=== PATIENT | female | born 1985 | race Caucasian/White ===

== ENCOUNTER 2018-08-18 07:40 | Day surgery (SDC) | payer MEDICAID ==
[2018-08-18] MEDS: CEFAZOLIN 1 GM/50 ML (PMX) 0 ML IVPB (08:43)
[2018-08-18] MEDS: CEFAZOLIN 1 GM/50 ML (PMX) 50 ML IVPB (09:45)
[2018-08-18] MEDS: SOD CHLORIDE 0.9% 1,000 ML IV (10:00)
[2018-08-18] MEDS: LIDOCAINE 1%/EPI (1:100,000) (MDV) 20 ML (10:31)
[2018-08-18] MEDS: FENTAnyl 50 MCG/ML VIAL (10:31)
[2018-08-18] MEDS: HEPARIN 1000 UNITS/ML 10 ML INJ (10:50)
[2018-08-18] MEDS: MIDAZOLAM 1 MG/ML 2 ML INJ (10:50)
[2018-08-18] MEDS: POLYMYXIN/BACITRACIN 1L IRRIG IRR (10:55)
[2018-08-18] MEDS ORDERED: HYDROCODONE/APAP (5/325) TAB PO (11:30)
== END 2018-08-18 13:35 | disposition home or self-care (01) ==
LOC: SDS 07:40
DX: C50.911 Malignant neoplasm of unspecified site of right female breast (principal)
CPT/HCPCS: 36561; 76942

== ENCOUNTER 2019-03-03 07:17 | Observation (INO) | payer MEDICAID ==
[2019-03-03 08:28] LABS: ADD MAN DIFF? NO
[2019-03-03 08:30] LABS: BASOPHILS % 0.3 % (0.0-2.0); EOSINOPHILS # 0.2 10^3/ul (0.0-0.5); EOSINOPHILS % 2.2 % (0.0-7.0); HEMATOCRIT 41.1 % (37.0-47.0); HEMOGLOBIN 12.9 g/dl (12.0-16.0); LYMPHOCYTES # 3.1 10^3/ul (0.8-2.9); LYMPHOCYTES % 39.9 % (15.0-51.0); MEAN CORPUSCULAR HEMOGLOBIN 27.7 pg (29.0-33.0); MEAN CORPUSCULAR HGB CONC 31.4 g/dl (32.0-37.0); MEAN CORPUSCULAR VOLUME 88.2 fl (82.0-101.0); MEAN PLATELET VOLUME 9.2 fl (7.4-10.4); MONOCYTE # 0.5 10^3/ul (0.3-0.9); MONOCYTES % 6.3 % (0.0-11.0); NEUTROPHILS % 50.9 % (39.0-77.0); PLATELET COUNT 274 10^3/UL (140-415); RED BLOOD COUNT 4.66 10^6/ul (4.20-5.40); RED CELL DISTRIBUTION WIDTH 14.8 % (11.5-14.5)
[2019-03-03 08:30] LABS: WHITE BLOOD COUNT 7.8 10^3/ul (4.8-10.8)
[2019-03-03 08:35] LABS: ALANINE AMINOTRANSFERASE 35 IU/L (13-69); ALBUMIN 4.2 g/dl (3.3-4.9); ALBUMIN/GLOBULIN RATIO 1.13; ALKALINE PHOSPHATASE 116 IU/L (42-121); ANION GAP 7 (5-13); ASPARTATE AMINO TRANSFERASE 25 IU/L (15-46); BILIRUBIN,INDIRECT 0.3 mg/dl (0-1.1); BILIRUBIN,TOTAL 0.3 mg/dl (0.2-1.3); BLOOD UREA NITROGEN 18 mg/dl (7-20); CALCIUM 9.6 mg/dl (8.4-10.2); CARBON DIOXIDE 30 mmol/L (21-31); CHLORIDE 103 mmol/L (97-110); CREATININE 0.58 mg/dl (0.44-1.00); Estimated GFR > 60 mL/min (>60); GLUCOSE 110 mg/dl (70-220); POTASSIUM 4.4 mmol/L (3.5-5.1); SODIUM 140 mmol/L (135-144); TOTAL PROTEIN 7.9 g/dl (6.1-8.1)
[2019-03-03 08:57] LABS: INR 0.98; PROTIME 13.1 Sec (11.9-14.9)
[2019-03-03 08:58] LABS: PARTIAL THROMBOPLASTIN TIME 29.9 Sec (23.0-35.0)
[2019-03-03] MEDS: CEFAZOLIN 2 GM/50 ML (PMX) 50 ML IVPB (11:00)
[2019-03-03] MEDS: SOD CHLORIDE 0.9% 1,000 ML IV (11:44)
[2019-03-03] MEDS ORDERED: PROPOFOL 20 ML (13:49)
[2019-03-03] MEDS ORDERED: MIDAZOLAM 1 MG/ML 2 ML INJ (13:49)
[2019-03-03] MEDS ORDERED: LIDOCAINE 2% (SDV) 5 ML INJ (13:49)
[2019-03-03] MEDS ORDERED: FENTAnyl 50 MCG/ML VIAL (13:56)
[2019-03-03] MEDS ORDERED: FAMOTIDINE 20 MG INJ (14:13)
[2019-03-03] MEDS ORDERED: CEFAZOLIN 1 GM INJ (14:13)
[2019-03-03] MEDS ORDERED: ONDANSETRON 4 MG INJ (14:13)
[2019-03-03] MEDS ORDERED: DEXAMETHASONE 4 MG/ML 5 ML INJ (14:13)
[2019-03-03] MEDS ORDERED: HYDROmorphONE 2 MG/ML SYG (14:17)
[2019-03-03] MEDS: ISOSULFAN BLUE 1% 5 ML INJ SC (14:25)
[2019-03-03] MEDS: D5W-0.45 NACL + KCL 20 MEQ 1,000 ML IV (15:22)
[2019-03-03] MEDS ORDERED: morphine 2 MG INJ IV (15:30)
[2019-03-03] MEDS ORDERED: ACETAMINOPHEN 1000MG/100ML IV 100 ML IVPB (15:30)
[2019-03-03] MEDS ORDERED: ONDANSETRON 4 MG INJ IV ×2 (15:30→16:30)
[2019-03-03] MEDS ORDERED: PROCHLORPERAZINE 10 MG INJ IV (16:30)
[2019-03-03] MEDS ORDERED: DIPHENHYDRAMINE 50 MG INJ IV (16:30)
[2019-03-03] MEDS ORDERED: FENTAnyl 50 MCG/ML VIAL IV ×3 (16:30)
[2019-03-03] MEDS ORDERED: HYDROmorphONE 1 MG/5 ML IV SYRINGE IV ×3 (16:30)
[2019-03-03] MEDS ORDERED: OXYCODONE/ACETAMINOPHEN (5/325) TAB PO (16:30)
[2019-03-03] MEDS ORDERED: MEPERIDINE 25 MG INJ IV (16:30)
[2019-03-04] MEDS: D5W-0.45 NACL + KCL 20 MEQ 1,000 ML IV ×3 (03:09→15:22)
[2019-03-04 15:04] LABS: ADD MAN DIFF? NO
[2019-03-04 15:16] LABS: WHITE BLOOD COUNT 14.3 10^3/ul (4.8-10.8)
[2019-03-04 15:16] LABS: BASOPHILS % 0.2 % (0.0-2.0); EOSINOPHILS # 0.1 10^3/ul (0.0-0.5); EOSINOPHILS % 0.4 % (0.0-7.0); HEMATOCRIT 38.4 % (37.0-47.0); HEMOGLOBIN 12.2 g/dl (12.0-16.0); LYMPHOCYTES # 3.8 10^3/ul (0.8-2.9); LYMPHOCYTES % 26.7 % (15.0-51.0); MEAN CORPUSCULAR HEMOGLOBIN 28.3 pg (29.0-33.0); MEAN CORPUSCULAR HGB CONC 31.8 g/dl (32.0-37.0); MEAN CORPUSCULAR VOLUME 89.1 fl (82.0-101.0); MEAN PLATELET VOLUME 8.9 fl (7.4-10.4); MONOCYTE # 0.8 10^3/ul (0.3-0.9); MONOCYTES % 5.7 % (0.0-11.0); NEUTROPHIL # 9.5 10^3/ul (1.6-7.5); NEUTROPHILS % 66.5 % (39.0-77.0); PLATELET COUNT 284 10^3/UL (140-415); RED BLOOD COUNT 4.31 10^6/ul (4.20-5.40); RED CELL DISTRIBUTION WIDTH 14.6 % (11.5-14.5)
[2019-03-04 15:30] LABS: ANION GAP 6 (5-13); BLOOD UREA NITROGEN 13 mg/dl (7-20); CALCIUM 8.9 mg/dl (8.4-10.2); CARBON DIOXIDE 29 mmol/L (21-31); CHLORIDE 105 mmol/L (97-110); CREATININE 0.67 mg/dl (0.44-1.00); Estimated GFR > 60 mL/min (>60); GLUCOSE 103 mg/dl (70-220); POTASSIUM 3.9 mmol/L (3.5-5.1); SODIUM 140 mmol/L (135-144)
== END 2019-03-04 19:50 | disposition home or self-care (01) ==
LOC: SDS 07:17 → REC 15:41 → MS1 18:35
DX: C50.411 Malignant neoplasm of upper-outer quadrant of right female breast (principal); Z17.0 Estrogen receptor positive status [ER+]; C77.3 Secondary and unspecified malignant neoplasm of axilla and upper limb lymph nodes
CPT/HCPCS: 19301; 80048; 80053; 84703; 85025; 85610; 85730; 88307